=== PATIENT | male | born 1970 | race Caucasian/White ===

== ENCOUNTER 2016-09-11 14:23 | Emergency (ER) | payer SELFPAY ==
[~2016-09-11] VITALS: Ht 180.3 cm; Wt 100.0 kg
[2016-09-11 14:31] VITALS: BP 148/88; PULSE 72; RESP 16; TEMP 98.2; O2SAT 99
[2016-09-11 16:19] LABS: BLOOD, URINE MOD (NEG); COMMENT (UR) CULT NOT INDICATED; CULTURE IF INDICATED CULT NOT INDICATED; GLUCOSE,URINE NEG (NEG); KETONE, URINE NEG (NEG); MUCUS URINE FEW /lpf (OCC); NITRITE,URINE NEG (NEG); PH, URINE 5.5 (5.0-8.5)
[2016-09-11] MEDS ORDERED: SODIUM CHLOR 0.9% 1000 ML INJ 1,000 ML IV SCH (16:19)
[2016-09-11 16:23] VITALS: O2SAT 99
[2016-09-11] MEDS ORDERED: TAMS5CAP PO (16:25)
[2016-09-11 16:28] LABS: URINE COLOR RED (YELLW/STRAW)
[2016-09-11] MEDS ORDERED: KETOROLAC TROMETHAMINE 30 MG/ML (IVP) VIAL IVP ONE (16:30)
[2016-09-11] MEDS ORDERED: ONDANSETRON HCL 4 MG/2 ML VIAL IVP ONE (16:30)
[2016-09-11] MEDS ORDERED: SODIUM CHLORIDE 0.9% FLUSH 5 ML FLUSH IVF PRN (16:30)
[2016-09-11 16:42] LABS: AUTOMATED NEUTROPHIL # 7.8 TH/MM3 (1.8-7.7); BASOPHIL # 0.1 TH/MM3 (0-0.2); BASOPHIL % 0.5 % (0.0-2.0); EOSINOPHIL # 0.1 TH/MM3 (0-0.4); EOSINOPHIL % 1.4 % (0.0-4.0); HEMATOCRIT 40.7 % (39.0-51.0); HEMO FLAGS DIFF FINAL; LYMPH % 15.4 % (9.0-44.0); LYMPHOCYTE # 1.5 TH/MM3 (1.0-4.8); MEAN CELL VOLUME 91.7 FL (80.0-100.0); MEAN CORPUSCULAR HEMOGLOBIN 30.1 PG (27.0-34.0); MEAN CORPUSCULAR HGB CONC 32.8 % (32.0-36.0); MONO % 3.9 % (0.0-8.0); NEUT % 78.8 % (16.0-70.0); PLATELET COUNT 208 TH/MM3 (150-450); RED BLOOD COUNT 4.44 MIL/MM3 (4.50-5.90); RED CELL DISTRIBUTION WIDTH 14.9 % (11.6-17.2); WHITE BLOOD COUNT 9.9 TH/MM3 (4.0-11.0)
[2016-09-11] MEDS ORDERED: HYDROmorphone HCL PF 1 MG/ML VIAL IV PUSH ONE (16:45)
[2016-09-11 17:13] LABS: BICARBONATE 27.6 MEQ/L (21.0-32.0)
--- NOTE | 2016-09-11 17:50 | PD ---
HPI Chief Complaint: Complaint Time Seen by Provider: 16:15 Travel History International Travel<30 days: No Contact w/Intl Traveler<30days: No Traveled to known affect area: No History of Present Illness HPI Patient is a 46 year old male presents with right sided flank pain and states he thinks he is having a kidney stone. States felt just like last time he had one. Patient relates a history of his urologist in [place] taking out an 8mm kidney stone and subsequently his J stent in june. Patient states pain on and off since then. Patient states having blood in his urine and urgency. Patient denies fevers, mild nausea without vomiting. Symptoms for 2 days and worsening. SHarp and intermittent. PFSH Past Medical History Kidney Stones: Yes Tetanus Vaccination: Unknown Past Surgical History Other Surgery: Yes (KIDNEY STONES) Social History Alcohol Use: No Tobacco Use: Yes Allergies-Medications (Allergen,Severity, Reaction): Coded Allergies: Morphine (Unverified Allergy, Severe, Swelling, 09/11/16) "Causes tongue swelling, but dilaudid is ok" Reported Meds & Prescriptions Reported Meds & Active Scripts Active [place] (Hydrocodone-Acetaminophen) 5-325 mg Tab 1 Tab PO Q6H PRN Reported Flomax (Tamsulosin HCl) 0.4 Mg Cap 0.4 Mg PO HS Review of Systems Except as stated in HPI: all other systems reviewed are Neg Physical Exam Narrative GENERAL: WD/WN in nad. SKIN: Warm and dry. HEAD: Atraumatic. Normocephalic. EYES: Pupils equal and round. No scleral icterus. No injection or drainage. ENT: No nasal bleeding or discharge. Mucous membranes pink and moist. NECK: Trachea midline. No JVD. CARDIOVASCULAR: Regular rate and rhythm. RESPIRATORY: No accessory muscle use. Clear to auscultation. Breath sounds equal bilaterally. GASTROINTESTINAL: Abdomen soft, non-tender, nondistended. Hepatic and splenic margins not palpable. Minimal CVA tenderness on the right. MUSCULOSKELETAL: Extremities without clubbing, cyanosis, or edema. No obvious deformities. NEUROLOGICAL: Awake and alert. No obvious cranial nerve deficits. Motor grossly within normal limits. Five out of 5 muscle strength in the arms and legs. Normal speech. PSYCHIATRIC: Appropriate mood and affect; insight and judgment normal. Data Data Last Documented VS Vital Signs Date Time Temp Pulse Resp B/P Pulse Ox O2 Delivery O2 Flow Rate FiO2 09/11/16 16:23 99 Room Air 09/11/16 14:31 98.2 72 16 148/88 Orders Urinalysis - C+S If Indicated (09/11/16 15:24) Basic Metabolic Panel (Bmp) (09/11/16 16:19) Complete Blood Count With Diff (09/11/16 16:19) Iv Access Insert/Monitor (09/11/16 16:19) Ecg Monitoring (09/11/16 16:19) Oximetry (09/11/16 16:19) Ondansetron Inj (Zofran Inj) (09/11/16 16:30) Sodium Chlor 0.9% 1000 Ml Inj (Ns 1000 M (09/11/16 16:19) Sodium Chloride 0.9% Flush (Ns Flush) (09/11/16 16:30) Ketorolac Inj (Toradol Inj) (09/11/16 16:30) Hydromorphone Pf Inj (Dilaudid Pf Inj) (09/11/16 16:45) Ct Abd/Pel W/O Iv Contrast (09/11/16 ) Labs Laboratory Tests Test 09/11/16 09/11/16 14:30 16:30 Urine Color RED Urine Turbidity CLEAR Urine pH 5.5 Urine Specific [place] 1.022 Urine Protein 30 mg/dL Urine Glucose (UA) NEG mg/dL Urine Ketones NEG mg/dL Urine Occult Blood MOD Urine Nitrite NEG Urine Bilirubin NEG Urine Urobilinogen LESS THAN 2.0 MG/DL Urine Leukocyte Esterase TRACE Urine RBC /hpf Urine WBC 6 /hpf Urine Mucus FEW /lpf Microscopic Urinalysis Comment CULT NOT INDICATED White Blood Count 9.9 TH/MM3 Red Blood Count 4.44 MIL/MM3 Hemoglobin 13.4 GM/DL Hematocrit 40.7 % Mean Corpuscular Volume 91.7 FL Mean Corpuscular Hemoglobin 30.1 PG Mean Corpuscular Hemoglobin 32.8 % Concent Red Cell Distribution Width 14.9 % Platelet Count 208 TH/MM3 Mean Platelet Volume 8.5 FL Neutrophils (%) (Auto) 78.8 % Lymphocytes (%) (Auto) 15.4 % Monocytes (%) (Auto) 3.9 % Eosinophils (%) (Auto) 1.4 % Basophils (%) (Auto) 0.5 % Neutrophils # (Auto) 7.8 TH/MM3 Lymphocytes # (Auto) 1.5 TH/MM3 Monocytes # (Auto) 0.4 TH/MM3 Eosinophils # (Auto) 0.1 TH/MM3 Basophils # (Auto) 0.1 TH/MM3 CBC Comment DIFF FINAL Differential Comment Sodium Level 142 MEQ/L Potassium Level 4.0 MEQ/L Chloride Level 106 MEQ/L Carbon Dioxide Level 27.6 MEQ/L Anion Gap 8 MEQ/L Blood Urea Nitrogen 18 MG/DL Creatinine 1.01 MG/DL Estimat Glomerular Filtration 79 ML/MIN Rate Random Glucose 133 MG/DL Calcium Level 8.9 MG/DL [facility] Medical Decision Making Medical Screen Exam Complete: Yes Emergency Medical Condition: Yes Differential Diagnosis Kidney stone, flank pain, renal colic, mary, liver disease, appendicitis highly unlikely by physical exam. Narrative Course Patient roomed in ER. He appears uncomfortable. Tried toradol prior to presentation without relief. Toradol IV given here without relief. Patient then states that he is allergic to morphine "makes his tongue swell" but dilaudid does not have the same effect. Dilaudid given. CT scan performed for intractible pain. No cause of abdominal pain seen. Labs are reassuring, has hematuria. Counseled on the need for follow up with his urologist. Patient quite comfortable appearing when returning from cat scan with legs crossed and smiling. When i re-evaluate he states he is still in pain. Discussed with him that some pain is to be expected if he just passed a kidney stone. Needs to follow up with a urologist. Patient states he has an appointment on monday and needs pain pills until then. Told him he should be getting better now that he is not in pain. I further discussed that his eforsce is concerning showing that he has been traveling throughout the [facility] getting scripts for narcotics over the past few months. Patient has 5 scripts from 5 different providers in 5 different cities over 2 months. 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 States he won't become addicted because he sees what happens to his inmates. I will provide him with 5 pills but informed him that he should not expect any further scripts until he follows up with his urologist. Diagnosis Primary Impression: Right flank pain Referrals: Edenilson Morales MD Additional Instructions: Follow-up with urologist, CAT scan shows he has no kidney stones and no problems with your kidneys. Scripts Hydrocodone-Acetaminophen ([place])5-325 mg Tab1 Tab PO Q6H PRN (PAIN) #5 TAB Ref 0 Prov:Yuriy Ruvalcaba MD 09/11/16 Disposition: 01 DISCHARGE HOME Condition: Stable Yuriy Ruvalcaba MD Sep 11, 2016 17:50
--- NOTE | 2016-09-11 17:55 | RADRPT ---
EXAM DATE/TIME: 09/11/2016 17:34 [facility] COMPARISON: No previous studies available for comparison. INDICATIONS : Hematuria and flank pain. ORAL CONTRAST: No oral contrast ingested. RADIATION DOSE: 9.96 CTDIvol (mGy) MEDICAL HISTORY : Renal calculi. SURGICAL HISTORY : None. ENCOUNTER: Initial ACUITY: 1 day PAIN SCALE: 7/10 LOCATION: Bilateral flank TECHNIQUE: Volumetric scanning of the abdomen and pelvis was performed. Using automated exposure control and ad justment of the mA and/or kV according to patient size, radiation dose was kept as low as reasonably achievable to obtain optimal diagnostic quality images. FINDINGS: LOWER LUNGS: The visualized lower lungs are clear. LIVER: Homogeneous density without lesion. There is no dilation of the biliary tree. No calcified gallston es. SPLEEN: Normal size without lesion. PANCREAS: Within normal limits. KIDNEYS: Normal in size and shape. There is no mass, stone, or hydronephrosis. ADRENAL GLANDS: Within normal limits. VASCULAR: There is no aortic aneurysm. Arterial calcifications are present. BOWEL/MESENTERY: The stomach, small bowel, and colon demonstrate no acute abnormality. There is no free intraperitone al air or fluid. ABDOMINAL WALL: Within normal limits. RETROPERITONEUM: There is no lymphadenopathy. BLADDER: No wall thickening or mass. REPRODUCTIVE: Prostate calcifications are present. INGUINAL: There is no lymphadenopathy or hernia. MUSCULOSKELETAL: Within normal limits for patient age. CONCLUSION: No acute disease. Charles Horowitz MD on September 11, 2016 at 17:52 Board Certified Radiologist. This report was verified electronically.
[2016-09-11] MEDS ORDERED: NORC5TAB PO (18:20)
== END 2016-09-11 18:22 | disposition home or self-care (01) ==
LOC: NEPA 14:23
DX: R10.9 Unspecified abdominal pain (principal)
CPT/HCPCS: 74176; 80048; 81001; 85025; 96374; 96375; 99284; J1170; J1885; J2405; J7030